=== PATIENT | male | born 1985 | race Asian ===

== ENCOUNTER 2023-01-03 15:06 | Inpatient (IN) | payer OTHER ==
[~2023-01-03] VITALS: Ht 152.4 cm; Wt 46.3 kg
--- NOTE | 2023-01-03 15:25 | NUR ---
SENT BY PCP FOR POSS. PEG TUBE PLACEMENT FOR BARIUM SWALLOW STUDY, RECOMMENDED BY PCP
--- NOTE | 2023-01-03 15:40 | NUR ---
MOVE SHEET SUBMITTED.
--- NOTE | 2023-01-03 15:45 | NUR ---
TECH AT BEDSIDE FOR EKG
--- NOTE | 2023-01-03 15:55 | NUR ---
COVID SWAB COLLECTED AND SENT TO LAB
--- NOTE | 2023-01-03 16:05 | NUR ---
established iv line 20 g right ac
[2023-01-03] MEDS ORDERED: LAMO25TA10 PO ×2 (16:10)
[2023-01-03] MEDS ORDERED: MAGN400O6 PO (16:10)
[2023-01-03] MEDS ORDERED: KETO120S5 TP (16:10)
[2023-01-03] MEDS ORDERED: BISA10SU11 RC (16:10)
[2023-01-03] MEDS ORDERED: OMEP20CA15 PO (16:10)
[2023-01-03] MEDS ORDERED: OXCA300T15 PO (16:10)
[2023-01-03] MEDS ORDERED: MULT-447 PO (16:10)
[2023-01-03] MEDS ORDERED: ACET-868 PO (16:10)
[2023-01-03] MEDS ORDERED: LEVE1000 PO (16:10)
[2023-01-03] MEDS ORDERED: TRIA15CR3 TP (16:10)
[2023-01-03] MEDS ORDERED: NA P133E RC (16:10)
[2023-01-03] MEDS ORDERED: DOCU-141 PO (16:10)
[2023-01-03] MEDS ORDERED: SENN8.8S19 PO (16:10)
[2023-01-03 16:12] LABS: BASOPHILS % (AUTO) 0.2 % (0.0-2.0); EOSINOPHILS % (AUTO) 0.7 % (0.0-6.0); HEMATOCRIT 41 % (39-51); HEMOGLOBIN 12.8 g/dL (13.5-17.5); LYMPHOCYTES # (AUTO) 2.4 K/uL (0.8-4.8); LYMPHOCYTES % (AUTO) 26.4 % (20.0-44.0); MEAN CORPUSCULAR HGB CONC 31 g/dl (31.0-36.0); MEAN CORPUSCULAR VOLUME 72 fL (80-96); MONOCYTES # (AUTO) 0.5 K/uL (0.1-1.30); MONOCYTES % (AUTO) 5.3 % (2.0-12.0); NEUTROPHILS # (AUTO) 6.2 K/uL (1.8-8.9); NEUTROPHILS % (AUTO) 67.4 % (43.0-81.0); PLATELET COUNT (AUTO) 469 K/uL (150-450); RED BLOOD CELL COUNT(AUTO) 5.79 MIL/uL (4.5-6.0); WHITE BLOOD COUNT (AUTO) 9.2 K/uL (4.3-11.0)
--- NOTE | 2023-01-03 16:37 | NUR ---
[facility] CALLED METALLURGIST PROCESS PAGED.
[2023-01-03 16:45] LABS: ALBUMIN 3.5 g/dL (3.4-5.0); BILIRUBIN,TOTAL 0.3 mg/dL (0.2-1.0); CALCIUM, SERUM 9.6 mg/dL (8.5-10.1); CREATININE 0.9 mg/dL (0.6-1.3); POTASSIUM 4.1 mmol/L (3.5-5.1); TOTAL PROTEIN, SERUM 8.9 g/dL (6.4-8.2)
--- NOTE | 2023-01-03 17:25 | NUR ---
DR NELSON ABLE TO SPEAK W/ DR RAMOS
[2023-01-03] MEDS: LEVETIRACETAM (250 MG) 250 MG TABLET PO SCH (17:30)
[2023-01-03] MEDS ORDERED: ACETAMINOPHEN 650 MG/SUPP.RECT RC PRN (17:30)
[2023-01-03] MEDS ORDERED: IV D5/0.45 NACL 1,000 ML IV PRN (17:30)
[2023-01-03] MEDS: OXCARBAZEPINE 150 MG TABLET PO SCH (17:30)
[2023-01-03] MEDS ORDERED: ONDANSETRON HCL/PF 4 MG/2 ML VIAL IVP PRN ×2 (17:30)
[2023-01-03] MEDS ORDERED: Z GUARD REMEDY 4 OZ OINT TP PRN ×2 (17:30)
--- NOTE | 2023-01-03 18:05 | NUR ---
room 304-1
--- NOTE | 2023-01-03 18:33 | NUR ---
ROOM 327-2
--- NOTE | 2023-01-03 18:33 | NUR ---
PT REPORT GIVEN TO CAROLA OROZCO
[2023-01-03 18:35] LABS: LYMPHOCYTES % (MANUAL) 29 % (16-48); MONOCYTES % (MANUAL) 6 % (0-11.0); NEUTROPHILS % (MANUAL) 65 (42-76)
--- NOTE | 2023-01-03 19:41 | NUR ---
PT TRANSFERRING TO [facility] VIA HOSPITAL PROTOCOL. VSS. ALL BELONGINGS WITH PT
[2023-01-03 20:00] VITALS: BP 141/115
--- NOTE | 2023-01-03 22:33 | NUR ---
MS RN ADMITTING NOTES: RECEIVED PATIENT AWAKE IN BED TRANSFER VIA GURNEY, PLACED COMFORTABLY IN BED, BED IN LOW POSITION CALL LIGHTS WITHIN REACH, PATIENT IS A/OX1, NO COMPLAIN OF PAIN AND DISCOMFORT AT THIS TIME, ON ROOM AIR SATURATING WELL, PATIENT ON NPO, IV LINE AT RFA#20 WITH ONGOING D5 1/2 NSS@75ML/HR INFUSING WELL, SKIN ASSESSMENT DONE AND DOCUMENTED, INVENTORY DONE, PATIENT PLACE IN BED COMFORTABLY, REMIND TO USE CALL LIGHTS WHEN NEEDED ASSISTANCE,
[2023-01-03] MEDS: IV D5/0.45 NACL 1,000 ML IV PRN (22:58)
--- NOTE | 2023-01-04 06:49 | NUR ---
MS RN CLOSING NOTES: PATIENT SLEEP IN BED COMFORTABLY, BE DIN LOW POSITION CALL LIGHTS WITHIN REACH, NO COMPLAIN OF PAIN AND DISCOMFORT AT THIS TIME,NO FACIAL GRIMACING WAS OBSERVED, ON ROOM AIR SATURATING WELL, NO SOB WAS OBSERVED, ON NPO, PATIENT IS A/OX1 NONE VERBAL, N WITH IV LINE OF D5 1/2 NSS@75ML/HR INFUSING WELL, PATIENT KEPT CLEAN AND DRY ALL NEEDS MET ENDORSE TO INCOMING SHIFT.
[2023-01-04 07:12] LABS: BASOPHILS % (AUTO) 0.2 % (0.0-2.0); EOSINOPHILS % (AUTO) 0.6 % (0.0-6.0); HEMATOCRIT 37 % (39-51); HEMOGLOBIN 11.4 g/dL (13.5-17.5); LYMPHOCYTES # (AUTO) 2.2 K/uL (0.8-4.8); LYMPHOCYTES % (AUTO) 27.3 % (20.0-44.0); MEAN CORPUSCULAR HGB CONC 31 g/dl (31.0-36.0); MEAN CORPUSCULAR VOLUME 72 fL (80-96); MONOCYTES # (AUTO) 0.5 K/uL (0.1-1.30); MONOCYTES % (AUTO) 6.8 % (2.0-12.0); NEUTROPHILS # (AUTO) 5.3 K/uL (1.8-8.9); NEUTROPHILS % (AUTO) 65.1 % (43.0-81.0); PLATELET COUNT (AUTO) 411 K/uL (150-450); RED BLOOD CELL COUNT(AUTO) 5.19 MIL/uL (4.5-6.0); WHITE BLOOD COUNT (AUTO) 8.1 K/uL (4.3-11.0)
[2023-01-04 07:25] LABS: CREATININE 0.8 mg/dL (0.6-1.3); MAGNESIUM 2.1 mg/dL (1.8-2.4); PHOSPHORUS 3.4 mg/dL (2.5-4.9); POTASSIUM 3.8 mmol/L (3.5-5.1)
--- NOTE | 2023-01-04 07:35 | NUR ---
ms rn received on bed,non verbal patient, not in any form of distress, respirations even and unlabored,no sob noted, lungs are clear,abdomen soft,positive bowel sounds,no s/s of pain at this time, came in w/ dysphagia, failure to thrive, npo at this time, will monitor patient.
[2023-01-04 08:00] VITALS: BP 160/97
[2023-01-04] MEDS: LamoTRIgine 25 MG TABLET PO SCH (08:35)
[2023-01-04] MEDS: OXCARBAZEPINE 150 MG TABLET PO SCH ×2 (09:00→16:55)
[2023-01-04] MEDS ORDERED: PANTOPRAZOLE 40 MG VIAL IV SCH (09:00)
[2023-01-04] MEDS: LEVETIRACETAM (250 MG) 250 MG TABLET PO SCH ×2 (09:00→16:55)
--- NOTE | 2023-01-04 09:00 | NUR ---
ms rn speech therapist came, cannot evaluate patient, will retry again in am, remained npo at this time.
[2023-01-04] MEDS: PANTOPRAZOLE 40 MG VIAL IV SCH (09:28)
--- NOTE | 2023-01-04 11:00 | NUR ---
ms rn called facility for vaccine updates, planning to insert pegtube by dr. santana will call family for consents.
[2023-01-04] MEDS: IV D5/0.45 NACL 1,000 ML IV PRN ×2 (11:18→23:29)
--- NOTE | 2023-01-04 11:40 | NUR ---
ms rn was seen by dr hernandez, waiting for orders.
--- NOTE | 2023-01-04 14:00 | NUR ---
ms rn up by PT, did 5feet, looks wear.all needs attended.
[2023-01-04 16:00] VITALS: BP 147/97
--- NOTE | 2023-01-04 19:20 | NUR ---
MS RN OPENING NOTE PATIENT IS SITTING IN THE BED WITH EYES OPENED. HE IS ALERT, AO X 1. HE IS ON RA, TOLERATED WELL. NO S/S OF DISTRESS OR SOB. PATIENT HAS IV ACCESS AT HIS R AC, #20G, RUNNING D5 1/2NS@ 75 ML/HR. IV SITE IS PATENT AND INTACT. PATIENT DOES NOT SHOWING ANY SIGNS OF HAVING PAIN AT THIS MOMENT. SAFETY MEASURES ARE IN PLACED: BED IN LOWEST AND LOCKED POSITION; SIDE RAILS UP X 2; BED ALARM IS SET; AND CALL LIGHT AND TABLE ARE WITHIN EASY REACH. WILL CONTINUE MONITOR THE PATIENT AND PROVIDE THE CARE PATIENT NEEDS.
[2023-01-04 20:00] VITALS: BP 150/98
--- NOTE | 2023-01-05 07:23 | NUR ---
MS RN CLOSING NOTE PATIENT IS SLEEPING IN BED, EASILY BEING AROUSED. HE IS ALERT, AO X 1. HE IS ON RA, TOLERATED WELL. NO S/S OF DISTRESS OR SOB. PATIENT HAS IV ACCESS AT HIS R AC, #20G, RUNNING D5 1/2NS@ 75 ML/HR. IV SITE IS PATENT AND INTACT. PATIENT DOES NOT SHOWING ANY SIGNS OF HAVING PAIN AT THIS MOMENT. SAFETY MEASURES ARE IN PLACED: BED IN LOWEST AND LOCKED POSITION; SIDE RAILS UP X 2; BED ALARM IS SET; AND CALL LIGHT AND TABLE ARE WITHIN EASY REACH. WILL ENDORSE NEXT SHIFT NURSE FOR CONTINUING PATIENT CARE.
--- NOTE | 2023-01-05 07:35 | NUR ---
ms rn received on bed, awake, nonverbal patient, came in w/ dysphagia/failure to thrive, iv at right upper arm w/ d5 1/2 ns at 75ml/hr, infusing well, repositioned for comfort,all needs attended.
[2023-01-05] MEDS: LamoTRIgine 25 MG TABLET PO SCH (09:00)
[2023-01-05] MEDS: LEVETIRACETAM (250 MG) 250 MG TABLET PO SCH ×2 (09:00→17:00)
[2023-01-05] MEDS: OXCARBAZEPINE 150 MG TABLET PO SCH ×2 (09:00→17:00)
[2023-01-05] MEDS: PANTOPRAZOLE 40 MG VIAL IV SCH (09:40)
--- NOTE | 2023-01-05 10:00 | NUR ---
ms rn still on bed, will follow up for the plan of g tube placement.
[2023-01-05] MEDS: IV D5/0.45 NACL 1,000 ML IV PRN (12:38)
--- NOTE | 2023-01-05 18:34 | NUR ---
ms rn patient on bed, no distress noted, was seen by dr. Quiñonez earlier, w/ orders made and carried out, still waiting for peg placement.all needs attended.
--- NOTE | 2023-01-05 19:00 | NUR ---
RN OPENING NOTES PT IS ASLEEP, A/O X 1, NON VERBAL. PT ON RA, TOLERATING WELL, BREATHING EVEN AND UNLABORED AT THIS TIME. PT RIGHT ANTECUBITAL #20G RUNNING D5 1/2 NS @ 75ML/HR, PATENT, INTACT AND FLUSHES WELL W/ NO S/S OF INFILTRATION ON SITE NOTED. PT IS NPO. SAFETY MEASURES IN PLACE. BED IN ITS LOWEST & LOCKED POSITION, SIDE RAILS UP X 3, BEDSIDE TABLE & CALL LIGHT IS EASY REACH. WILL CONTINUE TO MONITOR PT ACCORDINGLY.
[2023-01-05 20:00] VITALS: BP 149/105
[2023-01-05] MEDS ORDERED: hydrALAZINE HCL IV 20 MG VIAL IV PRN (20:00)
[2023-01-05] MEDS: hydrALAZINE HCL IV 20 MG VIAL IV PRN (20:40)
--- NOTE | 2023-01-05 20:50 | NUR ---
PT BP IS 149/105. CHARGE NURSE, TO WAS INFORMED AND NOTIFIED. DR. LON RBAGG WAS INFORMED AND NOTIFIED ABOUT THE PT CONDITION. DR. BRAGG ORDERED HYDRALAZINE 10 MG IVP Q6HR PRN FOR SBP >140. HYDRALAZINE ADMINISTERED ACCORDINGLY PER MD'S ORDER.
[2023-01-06] MEDS: hydrALAZINE HCL IV 20 MG VIAL IV PRN (04:54)
[2023-01-06] MEDS: IV D5/0.45 NACL 1,000 ML IV PRN (04:56)
--- NOTE | 2023-01-06 06:10 | NUR ---
RN CLOSING NOTES PT IS AWAKE, A/O X 1, NON VERBAL. PT ON RA, TOLERATING WELL, BREATHING EVEN AND UNLABORED AT THIS TIME. NO S/S OF RESPIRATORY DISTRESS. PT RIGHT ANTECUBITAL #20G RUNNING, PATENT, INTACT AND FLUSHES WELL W/ NO S/S OF INFILTRATION ON SITE NOTED. PT IS NPO. MEDICATION ADMINISTERED PER MD'S ORDER. SAFETY MEASURES IN PLACE. BED IN ITS LOWEST & LOCKED POSITION, SIDE RAILS UP X 2, BEDSIDE TABLE & CALL LIGHT IS EASY REACH. WILL CONTINUE TO MONITOR PT ACCORDINGLY.
[2023-01-06 06:22] LABS: BASOPHILS % (AUTO) 0.4 % (0.0-2.0); EOSINOPHILS % (AUTO) 3.1 % (0.0-6.0); HEMATOCRIT 41 % (39-51); HEMOGLOBIN 12.8 g/dL (13.5-17.5); LYMPHOCYTES # (AUTO) 1.6 K/uL (0.8-4.8); LYMPHOCYTES % (AUTO) 18.8 % (20.0-44.0); MEAN CORPUSCULAR HGB CONC 31 g/dl (31.0-36.0); MEAN CORPUSCULAR VOLUME 72 fL (80-96); MONOCYTES # (AUTO) 0.6 K/uL (0.1-1.30); MONOCYTES % (AUTO) 7.4 % (2.0-12.0); NEUTROPHILS # (AUTO) 5.9 K/uL (1.8-8.9); NEUTROPHILS % (AUTO) 70.3 % (43.0-81.0); PLATELET COUNT (AUTO) 397 K/uL (150-450); RED BLOOD CELL COUNT(AUTO) 5.74 MIL/uL (4.5-6.0); WHITE BLOOD COUNT (AUTO) 8.4 K/uL (4.3-11.0)
--- NOTE | 2023-01-06 07:09 | NUR ---
ms rn received on bed, awake,no distress noted, still patient waiting for peg placement, bilateral lower extremity contracted, denies pain , all needs attended.
[2023-01-06 07:18] LABS: ALBUMIN 3.1 g/dL (3.4-5.0); BILIRUBIN,TOTAL 0.6 mg/dL (0.2-1.0); CALCIUM, SERUM 9.3 mg/dL (8.5-10.1); CREATININE 0.7 mg/dL (0.6-1.3); PHOSPHORUS 3.6 mg/dL (2.5-4.9); POTASSIUM 3.8 mmol/L (3.5-5.1)
[2023-01-06] MEDS: LamoTRIgine 25 MG TABLET PO SCH (09:00)
[2023-01-06] MEDS: OXCARBAZEPINE 150 MG TABLET PO SCH ×2 (09:00→17:00)
[2023-01-06] MEDS: LEVETIRACETAM (250 MG) 250 MG TABLET PO SCH ×2 (09:00→17:00)
[2023-01-06] MEDS: PANTOPRAZOLE 40 MG VIAL IV SCH (09:36)
--- NOTE | 2023-01-06 14:30 | NUR ---
ms rn went down for peg placement,all needs attended.
--- NOTE | 2023-01-06 15:50 | NUR ---
ms rn came back from peg placement surgery, patient is awake, vitals stable, surgery site, w/ dressing w. blood strick, will monitor for bleeding, denies pain at this time,all needs attended
--- NOTE | 2023-01-06 17:00 | NUR ---
ms rn checked surgical site for bleeding, dressing slightly soaked w/ blood, reinforced dressing.
--- NOTE | 2023-01-06 18:15 | NUR ---
ms rn dressing heavily soaked, rechecked w/ charge nurse, w/ order to do cbc and stat kub,all needs attended,no distress noted. will notify dr. arrington.
[2023-01-06 19:54] LABS: BASOPHILS % (AUTO) 0.2 % (0.0-2.0); EOSINOPHILS % (AUTO) 0.8 % (0.0-6.0); HEMATOCRIT 44 % (39-51); HEMOGLOBIN 13.1 g/dL (13.5-17.5); LYMPHOCYTES # (AUTO) 1.3 K/uL (0.8-4.8); LYMPHOCYTES % (AUTO) 7.9 % (20.0-44.0); MEAN CORPUSCULAR HGB CONC 30 g/dl (31.0-36.0); MEAN CORPUSCULAR VOLUME 74 fL (80-96); MONOCYTES # (AUTO) 0.9 K/uL (0.1-1.30); MONOCYTES % (AUTO) 5.3 % (2.0-12.0); NEUTROPHILS # (AUTO) 14.4 K/uL (1.8-8.9); NEUTROPHILS % (AUTO) 85.8 % (43.0-81.0); PLATELET COUNT (AUTO) 376 K/uL (150-450); RED BLOOD CELL COUNT(AUTO) 5.89 MIL/uL (4.5-6.0); WHITE BLOOD COUNT (AUTO) 16.8 K/uL (4.3-11.0)
--- NOTE | 2023-01-06 19:58 | NUR ---
RN OPENING NOTES RECEIVED PT AWAKE ON BED, A/O X 1, NON VERBAL. PT ON RA, TOLERATING WELL, BREATHING EVEN AND UNLABORED AT THIS TIME. NO S/S OF RESPIRATORY DISTRESS. PT RIGHT ANTECUBITAL #20G RUNNING, PATENT, INTACT AND FLUSHES WELL W/ NO S/S OF INFILTRATION ON SITE NOTED. PT IS NPO. SAFETY MEASURES IN PLACED; BED IN LOWEST POSITION & LOCKED, SIDE RAILS UP X 2, BEDSIDE TABLE & CALL LIGHT IS EASY REACH.
[2023-01-06 20:00] VITALS: BP 147/99
--- NOTE | 2023-01-06 21:00 | NUR ---
RN NOTE ASSESSMENT DONE OF PEG TUBE SITE DRESSING INTACT NO BLEEDING NOTED AT THIS TIME.
[2023-01-06 22:19] LABS: BAND % (MANUAL) 2 % (0.0-5.0); EOSINOPHILS % (MANUAL) 1 % (0-4); LYMPHOCYTES % (MANUAL) 11 % (16-48); MONOCYTES % (MANUAL) 4 % (0-11.0); NEUTROPHILS % (MANUAL) 82 (42-76)
--- NOTE | 2023-01-06 23:51 | NUR ---
RN NOTE WHEN CHANGING PT NOTED PEG TUBE DRESSING SOILED WITH BLOOD UPON FURTHER INSPECTION NOTED BLOOD LEAKING FROM THE SIDE OF DRESSING. DRESSING CHANGED AND REINFORCED. ABDOMINAL BINDER PUT ON CHARGE NURSE AT BEDSIDE MADE AWARE. ROASTER SUPERVISOR MAHSA BURROUGHS AWARE Addendum: 01/07/23 at 0356 by JAZMYN GAUTAM RN STAT CBC ORDERED NOTED CARRIED OUT CALLED LAB TO VERIFY ORDER WAS RECEIVED.
[2023-01-07 00:26] LABS: HEMOGLOBIN 12.2 g/dL (13.5-17.5)
[2023-01-07 02:20] VITALS: BP 128/65
--- NOTE | 2023-01-07 02:20 | NUR ---
RN NOTES NOTED PTS PEG TUBE DRESSING HAS SOAKED THROUGH ONCE AGAIN. CHARGE NURSE ASSESSED PT WITH ME INFORMED CISCO CONSULTANT MAHSA. REDRESSED AND APPLIED NEW DRESSING AND BINDER. PT DOES NOT APPEAR IN ANY DISTRESS VITALS ASSESSED SBP 128/65 CONTINUOUS ON 2L VIA NASAL CANNULA TOLERATING WELL. SKIN IS WARM TO THE TOUCH AND NO PALOR NOTED. AFEBRILE AT THIS TIME. Addendum: 01/07/23 at 0543 by JAZMYN GAUTAM RN HR 90S
[2023-01-07 04:59] VITALS: BP 128/84
[2023-01-07 05:42] LABS: BASOPHILS % (AUTO) 0.2 % (0.0-2.0); EOSINOPHILS % (AUTO) 1.3 % (0.0-6.0); HEMATOCRIT 34 % (39-51); HEMOGLOBIN 10.7 g/dL (13.5-17.5); LYMPHOCYTES # (AUTO) 1.6 K/uL (0.8-4.8); LYMPHOCYTES % (AUTO) 12.9 % (20.0-44.0); MEAN CORPUSCULAR HGB CONC 31 g/dl (31.0-36.0); MEAN CORPUSCULAR VOLUME 71 fL (80-96); MONOCYTES # (AUTO) 0.6 K/uL (0.1-1.30); MONOCYTES % (AUTO) 5.2 % (2.0-12.0); NEUTROPHILS # (AUTO) 9.8 K/uL (1.8-8.9); NEUTROPHILS % (AUTO) 80.4 % (43.0-81.0); PLATELET COUNT (AUTO) 437 K/uL (150-450); RED BLOOD CELL COUNT(AUTO) 4.82 MIL/uL (4.5-6.0); WHITE BLOOD COUNT (AUTO) 12.2 K/uL (4.3-11.0)
[2023-01-07 05:59] LABS: D-DIMER 1.47 mg/L(FEU (0.17-0.50)
[2023-01-07 06:02] LABS: ALBUMIN 2.8 g/dL (3.4-5.0); BILIRUBIN,TOTAL 0.5 mg/dL (0.2-1.0); CREATININE 0.8 mg/dL (0.6-1.3); MAGNESIUM 1.7 mg/dL (1.8-2.4); PHOSPHORUS 3.5 mg/dL (2.5-4.9); POTASSIUM 3.7 mmol/L (3.5-5.1); TOTAL PROTEIN, SERUM 7.3 g/dL (6.4-8.2)
[2023-01-07] MEDS ORDERED: SILVER NITRATE APPLICATOR 1 EA BOX TP ONE ×2 (06:30→07:00)
--- NOTE | 2023-01-07 06:56 | NUR ---
RN CLOSING NOTES PATIENT AWAKE ON BED, A/O X 1, NON VERBAL. PT ON RA, TOLERATING WELL, BREATHING EVEN AND UNLABORED AT THIS TIME. NO S/S OF RESPIRATORY DISTRESS. PT RIGHT ANTECUBITAL #20G RUNNING, PATENT, INTACT AND FLUSHES WELL W/ NO S/S OF INFILTRATION ON SITE NOTED. PT IS NPO. ALL NEEDS ARE MET. PATIENT IS BLEEDING THROUGH PEG-TUBE SITE DRESSING REINFORCED THROUGH OUT THE NIGHT, GI DOCTOR MADE AWARE OF, DESK REPRESENTATIVE DOCTOR MADE AWARE OF, RECEIVED ORDER OF SILVER NITRATE AND CARRIED OUT. SAFETY MEASURES IN PLACED; BED IN LOWEST POSITION & LOCKED, SIDE RAILS UP X 2, BEDSIDE TABLE & CALL LIGHT IS EASY REACH.WILL ENDORSE TO NEXT SHIFT NURSE FOR CONTINUITY OF CARE. Addendum: 01/07/23 at 0728 by JAZMYN GAUTAM RN morning hgb noted to be 10.7 GI doctor and underwriting operations manager made aware.
[2023-01-07] MEDS ORDERED: CELLULOSE,OXIDIZED 1 PKT EACH MC ONE (07:00)
--- NOTE | 2023-01-07 07:30 | NUR ---
PT RECEIVED RESTING COMFORTABLY IN BED WITH EYES CLOSED. NO S/S OR C/O PAIN OR DISTRESS NOTED. SIDE RAILS UP X2, CALL LIGHT LEFT WITHIN REACH. WILL CONTINUE PLAN OF CARE.
--- NOTE | 2023-01-07 07:45 | NUR ---
DRESSING CHANGE DRESSING REMOVED TO ASSESS SITE. BIG CLOTS REMOVED. SITE FOUND TO HAVE MILD-MODERATE CONSISTENT BLEEDING. PATIENT CLEANED. WE REPOSITIONED THE OUTER PEG TUBING TO A FLATTER ORIENTATION TO ACHIEVE OPTIMAL PRESSURE TO SITE. PRESSURE DRESSINGS APPLIED AND REINFORCED WITH SURGICAL TAPE AND ABD PAD. DISPOSABLE NORIS CHANGED AND REPLACE WITH CLEAN ONE TO MONITOR BLEEDING. WILL CONTINUE TO MONITOR. THANK YOU TO DEVEN SRIVASTAVA FOR ASSISTING.
[2023-01-07 08:21] VITALS: BP 115/80
[2023-01-07] MEDS: LEVETIRACETAM (250 MG) 250 MG TABLET PO SCH ×2 (09:13→16:10)
[2023-01-07] MEDS: PANTOPRAZOLE 40 MG VIAL IV SCH (09:13)
[2023-01-07] MEDS: OXCARBAZEPINE 150 MG TABLET PO SCH ×2 (09:13→16:09)
[2023-01-07] MEDS: Magnesium 1GM/D5W 100ML PREMIX 100 ML IV SCH ×2 (09:13→11:25)
[2023-01-07] MEDS: LamoTRIgine 25 MG TABLET PO SCH (09:14)
--- NOTE | 2023-01-07 09:15 | NUR ---
AT [facility] DR SERRA Addendum: 01/07/23 at 1852 by NAS SAN RN NO FURTHER BLEEDING NOTED AFTER APPLICATION OF SILVER NITRATE. PRESSURE DRESSING APPLIED. WILL CONTINUE TO MONITOR.
--- NOTE | 2023-01-07 10:30 | NUR ---
NO BLEEDING NOTED.
[2023-01-07 12:00] VITALS: BP 103/70
[2023-01-07] MEDS ORDERED: JEVITY 1.2 CAL 1,000 ML BOTTLE NG PRN ×2 (14:00)
--- NOTE | 2023-01-07 14:00 | NUR ---
DRESSING CHECKED SHOWN TO HAVE A MINIMAL AMOUNT OF SEROUS DRAINAGE. WNL. NO SIGNS OF BLEEDING.
[2023-01-07] MEDS: IV D5/0.45 NACL 1,000 ML IV PRN (14:42)
[2023-01-07 16:23] VITALS: BP 102/79
--- NOTE | 2023-01-07 17:00 | NUR ---
NO BLEEDING NOTED. ABD BINDER REMOVED
--- NOTE | 2023-01-07 18:50 | NUR ---
CHANGE OF SHIFT REPORT PT RESTING COMFORTABLY IN BED. NO S/S OR C/O PAIN OR DISTRESS NOTED. SIDE RAILS UP X2, CALL LIGHT LEFT WITHIN REACH. PT KEPT CLEAN, DRY, AND COMFORTABLE. NO SIGNIFICANT CHANGES SINCE PREVIOUS SHIFT. WILL GIVE REPORT TO RHYS SRIVASTAVA.
--- NOTE | 2023-01-07 19:30 | NUR ---
PARK AIDE NOTES RECEIVED PATIENT IN BED WITH CLOSED EYES. RESPONSIVE UPON TACTILE STIMULI. NON VERBAL. NO PAIN NOTED. NO SOB NOTED. NO FACIAL GRIMACING NOTED. GTUBE IN PLACE. NO BLEEDING NOTED AT THE GTUBE SITE AT THIS TIME. ON G-TUBE FEEDING OF JEVITY AT 30 ML/HR. PREVIOUS SHIFT NURSE ENDORSED FOR FEEDING RATE AND KIND CLARIFICATION WITH MERCHANDISE DIRECTOR TOMORROW MORNING. IV ACCESS ON THE REJI G 22 INTACT RUNNING D5 1/2 NS AT 75 ML /HR. ALL SAFETY MEASURES IN PLACE. HEAD OF THE BED ELEVATED FOR ASPIRATION PRECAUTION. BED LOCKED IN THE LOWEST POSITION. SIDE RAILS UP TIMES 2. CALL LIGHT CLOSE TO THE PATIENT. WILL CONTINUE TO MONITOR CLOSELY FOR BLEEDING AND KELECHI DURING SHIFT.
[2023-01-07 20:00] VITALS: BP 126/86
[2023-01-08] VITALS (11 sets, daily range): BP systolic 100–135; BP diastolic 68–90
[2023-01-08] MEDS: IV D5/0.45 NACL 1,000 ML IV PRN ×2 (05:32→22:04)
[2023-01-08 07:05] LABS: BASOPHILS % (AUTO) 0.2 % (0.0-2.0); HEMATOCRIT 24 % (39-51); HEMOGLOBIN 7.6 g/dL (13.5-17.5); LYMPHOCYTES # (AUTO) 2.5 K/uL (0.8-4.8); MEAN CORPUSCULAR HGB CONC 32 g/dl (31.0-36.0); MEAN CORPUSCULAR VOLUME 71 fL (80-96); MONOCYTES # (AUTO) 0.9 K/uL (0.1-1.30); MONOCYTES % (AUTO) 6.6 % (2.0-12.0); NEUTROPHILS # (AUTO) 10.1 K/uL (1.8-8.9); NEUTROPHILS % (AUTO) 72.2 % (43.0-81.0); PLATELET COUNT (AUTO) 340 K/uL (150-450); RED BLOOD CELL COUNT(AUTO) 3.37 MIL/uL (4.5-6.0)
[2023-01-08 07:21] LABS: CALCIUM, SERUM 8.7 mg/dL (8.5-10.1); CREATININE 1.3 mg/dL (0.6-1.3); POTASSIUM 3.6 mmol/L (3.5-5.1)
--- NOTE | 2023-01-08 07:30 | NUR ---
OPTIMIZATION ENGINEER CLOSING NOTES PATIENT IN BED AWAKE. NO PAIN NOTED. NO SOB NOTED. NO FACIAL GRIMACING NOTED. GTUBE IN PLACE. NO BLEEDING NOTED AT THE GTUBE SITE AT THIS TIME. ON TELE MONITOR READIND ST 121.ON G-TUBE FEEDING OF JEVITY AT 30 ML/HR. PREVIOUS SHIFT NURSE ENDORSED FOR FEEDING RATE AND KIND CLARIFICATION WITH GROUP ACTIVITIES AIDE. IV ACCESS ON THE REJI G 22 INTACT RUNNING D5 1/2 NS AT 75 ML /HR. ALL SAFETY MEASURES IN PLACE. HEAD OF THE BED ELEVATED FOR ASPIRATION PRECAUTION. BED LOCKED IN THE LOWEST POSITION. SIDE RAILS UP TIMES 2. CALL LIGHT CLOSE TO THE PATIENT. WILL ENDORSE FOR KELECHI.
--- NOTE | 2023-01-08 07:50 | NUR ---
PASTRY COOK APPRENTICE OPENING NOTES PATIENT AWAKE IN BED, A/OX1 NO PAIN NOTED. NO SOB NOTED. NO FACIAL GRIMACING NOTED. GTUBE IN PLACE. NO BLEEDING NOTED AT THE GTUBE SITE AT THIS TIME. ON TELE MONITOR READIND ST 125. ON G-TUBE FEEDING OF JEVITY AT 30 ML/HR. IV ACCESS ON THE REJI G 22 INTACT RUNNING D5 1/2 NS AT 75 ML /HR. ALL SAFETY MEASURES IN PLACE. HEAD OF THE BED ELEVATED FOR ASPIRATION PRECAUTION. BED LOCKED IN THE LOWEST POSITION. SIDE RAILS UP TIMES 2. CALL LIGHT CLOSE TO THE PATIENT. WILL CONTINUE TO MONITOR.
[2023-01-08] MEDS: OXCARBAZEPINE 150 MG TABLET PO SCH ×2 (09:51→17:03)
[2023-01-08] MEDS: PANTOPRAZOLE 40 MG/PACK PACK NG SCH (09:51)
[2023-01-08] MEDS: LEVETIRACETAM (250 MG) 250 MG TABLET PO SCH ×2 (09:51→17:03)
[2023-01-08] MEDS: LamoTRIgine 25 MG TABLET PO SCH (09:56)
[2023-01-08] MEDS ORDERED: JEVITY 1.2 CAL 1,000 ML BOTTLE NG PRN (11:42)
[2023-01-08 14:31] LABS: BASOPHILS % (AUTO) 0.2 % (0.0-2.0); EOSINOPHILS % (AUTO) 3.1 % (0.0-6.0); HEMATOCRIT 23 % (39-51); LYMPHOCYTES # (AUTO) 2.3 K/uL (0.8-4.8); LYMPHOCYTES % (AUTO) 16.3 % (20.0-44.0); MEAN CORPUSCULAR HGB CONC 31 g/dl (31.0-36.0); MEAN CORPUSCULAR VOLUME 72 fL (80-96); MONOCYTES # (AUTO) 0.9 K/uL (0.1-1.30); MONOCYTES % (AUTO) 6.4 % (2.0-12.0); NEUTROPHILS # (AUTO) 10.4 K/uL (1.8-8.9); PLATELET COUNT (AUTO) 325 K/uL (150-450); RED BLOOD CELL COUNT(AUTO) 3.14 MIL/uL (4.5-6.0); WHITE BLOOD COUNT (AUTO) 14.1 K/uL (4.3-11.0)
[2023-01-08 14:56] LABS: HEMOGLOBIN 6.8 g/dL (13.5-17.5)
--- NOTE | 2023-01-08 15:00 | NUR ---
RN NOTES NOTIFIED DR. RAMOS REGARDING HEMOGLOBIN RESULT OF 6.8, WITH ORDER TO TRANSFUSE 1 PACK RBC. WILL CONTINUE TO MONITOR.
--- NOTE | 2023-01-08 19:30 | NUR ---
OPEN HEARTH LABORER CLOSING NOTES PATIENT SLEEPING IN BED, EASILY AROUSED. NO SIGNS OF DISTRESS NOTED. GTUBE IN PLACE, DRY AND INTACT. NO BLEEDING NOTED AT THE GTUBE SITE AT THIS TIME. ON G-TUBE FEEDING OF JEVITY AT 50 ML/HR. IV ACCESS ON THE REJI G 22 INTACT. BLOOD TRANSFUSION STARTED AT 1915, MONITOR EVERY [id number]. MONITOR FOR ANY SIDE EFFECTS. NO COMPLICATIONS NOTED SO FAR. ALL SAFETY MEASURES IN PLACE. HEAD OF THE BED ELEVATED FOR ASPIRATION PRECAUTION. BED LOCKED IN THE LOWEST POSITION. SIDE RAILS UP TIMES 2. CALL LIGHT CLOSE TO THE PATIENT. WILL ENDORSE FOR KELECHI.
--- NOTE | 2023-01-08 20:22 | NUR ---
GLASSWARE VERIFIER OPENING NOTE PATIENT SLEEPING IN BED, EASILY AROUSED, PT NON-VERBAL. PATIENT STABLE ON 2 LPM OF O2 VIA NASAL CANNULA, NO S/S OF DISTRESS OR SOB NOTED, BREATHING EVEN AND UNLABORED. PATIENT ON EXTERNAL CAR LUBRICATOR READING SINUS RHYTHM, HR: 99. PATIENT UNDERGOING BLOOD TRANSFUSION, TOLERATING WELL, VITAL SIGNS WNL. IV ACCESS ON REJI #22G INTACT AND INFUSING BLOOD. GTF INFUSING JEVITY 1.2 @ 50 ML/HR. SAFETY MEASURES IN PLACE: CALL LIGHT WITHIN REACH, SIDE RAILS UP X 3, BED LOCKED IN LOWEST POSITION, BED ALARM ON. WILL CONTINUE TO MONITOR PATIENT
--- NOTE | 2023-01-08 22:02 | NUR ---
QUALITY REVIEW SPECIALIST NOTE BLOOD TRANSFUSION FINISHED, PATIENT TOLERATED WELL, NO ADVERSE REACTIONS NOTED, VITAL SIGNS WNL. WILL CONTINUE TO MONITOR PATIENT
[2023-01-09] VITALS: BP 124/69
[2023-01-09 04:00] VITALS: BP 127/80
[2023-01-09 05:07] LABS: BASOPHILS % (MANUAL) 0 % (0.0-2.0); EOSINOPHILS % (MANUAL) 4 % (0-4); LYMPHOCYTES % (MANUAL) 18 % (16-48); MONOCYTES % (MANUAL) 4 % (0-11.0); NEUTROPHILS % (MANUAL) 74 (42-76)
[2023-01-09 06:55] LABS: BASOPHILS % (AUTO) 0.2 % (0.0-2.0); HEMATOCRIT 23 % (39-51); HEMOGLOBIN 7.5 g/dL (13.5-17.5); LYMPHOCYTES # (AUTO) 1.3 K/uL (0.8-4.8); MEAN CORPUSCULAR HGB CONC 32 g/dl (31.0-36.0); MEAN CORPUSCULAR VOLUME 71 fL (80-96); MONOCYTES # (AUTO) 0.9 K/uL (0.1-1.30); MONOCYTES % (AUTO) 7.3 % (2.0-12.0); NEUTROPHILS # (AUTO) 9.3 K/uL (1.8-8.9); NEUTROPHILS % (AUTO) 78.5 % (43.0-81.0); PLATELET COUNT (AUTO) 314 K/uL (150-450); WHITE BLOOD COUNT (AUTO) 11.8 K/uL (4.3-11.0)
--- NOTE | 2023-01-09 07:03 | NUR ---
PARKING TECHNICIAN CLOSING NOTE PATIENT AWAKE IN BED, PT NON-VERBAL, UNABLE TO MAKE THINGS . PATIENT STABLE ON 2 LPM OF O2 VIA NASAL CANNULA, NO S/S OF DISTRESS OR SOB NOTED, BREATHING EVEN AND UNLABORED. PATIENT ON EXTERNAL CONTRACT CLERK READING SINUS RHYTHM, HR: 88. PATIENT S/P 1 UNIT PRBC LAST NIGHT, TOLERATED WELL, NO ADVERSE EFFECTS. PATIENT ON GTF JEVITY 1.2 @ 50 ML/HR, NO BLEEDING NOTED AT GTUBE SITE THIS SHIFT. IV ACCESS ON REJI #22G INTACT AND INFUSING D5 1/2 NS @ 75 ML/HR. MEDICATIONS GIVEN ORDERED, PT NEEDS MET THROUGHOUT SHIFT. SAFETY MEASURES IN PLACE: CALL LIGHT WITHIN REACH, SIDE RAILS UP X 3, BED LOCKED IN LOWEST POSITION, HOB ELEVATED, BED ALARM ON. WILL ENDORSE TO DAYSHIFT RN FOR CONTINUITY OF CARE
[2023-01-09 07:18] LABS: CALCIUM, SERUM 8.6 mg/dL (8.5-10.1); CREATININE 0.8 mg/dL (0.6-1.3); POTASSIUM 3.9 mmol/L (3.5-5.1)
--- NOTE | 2023-01-09 07:45 | NUR ---
BILLET DRILLER OPENING NOTE PATIENT AWAKE IN BED, PT NON-VERBAL, PATIENT STABLE ON 2 LPM OF O2 VIA NASAL CANNULA, NO S/S OF DISTRESS OR SOB NOTED, BREATHING EVEN AND UNLABORED. PATIENT ON EXTERNAL ASSOCIATE PROFESSOR OF FORESTRY READING SINUS RHYTHM, HR: 80. PATIENT S/P 1 UNIT PRBC LAST NIGHT, NO COMPLICATIONS NOTED. PATIENT ON GTF JEVITY 1.2 @ 50 ML/HR, NO BLEEDING NOTED AT GTUBE SITE. IV ACCESS ON REJI #22G INTACT AND INFUSING D5 1/2 NS @ 75 ML/HR. SAFETY MEASURES IN PLACE: CALL LIGHT WITHIN REACH, SIDE RAILS UP X 3, BED LOCKED IN LOWEST POSITION, HOB ELEVATED, BED ALARM ON. WILL CONTINUE TO MONITOR.
[2023-01-09 08:00] VITALS: BP 143/93
[2023-01-09] MEDS: PANTOPRAZOLE 40 MG/PACK PACK NG SCH (09:03)
[2023-01-09] MEDS: LamoTRIgine 25 MG TABLET PO SCH (09:04)
[2023-01-09] MEDS: OXCARBAZEPINE 150 MG TABLET PO SCH (09:04)
[2023-01-09] MEDS: LEVETIRACETAM (250 MG) 250 MG TABLET PO SCH (09:04)
[2023-01-09 12:01] VITALS: BP 124/77
--- NOTE | 2023-01-09 13:14 | NUR ---
DISCHARGED NOTE PATIENT DISCHARGED TO [facility] IN STABLE CONDITION. AWAKE, NON-VERBAL. ON RA, TOLERATING WELL WITH SPO2 OF 98%. NO SOB/DISTRESS NOTED. VITAL SIGNS TAKEN, STABLE AND RECORDED. FERRLICIT HAS BEEN GIVEN BEFORE DISCHARGED ORDERED. NEW MEDICATIONS PRESCRIBED BY YOLIS DAY, ALL BELONGINGS ACCOUNTED TO THE PATIENT. DISCHARGED INSTRUCTIONS RELAYED TO KANDICE AT [facility]. IV ACCESS REMOVED WITH NO ACTIVE BLEEDING NOTED. PATIENT LEFT THE UNIT VIA GURNEY ACCOMPANIED BY EMS. DISCHARGED.
[2023-01-09] MEDS ORDERED: SOD FERRIC GLUC 125 MG in IV NS 0.9% 100 ML IV SCH (14:00)
== END 2023-01-09 13:15 | DRG 641 ==
LOC: ER 15:08 → TELE 19:32 → MED 19:55 → TELE 01-07 06:30
PROC: 0DH63UZ Insertion of Feeding Device into Stomach, Percutaneous Approach (ICD-10-PCS; principal; 2023-01-06)
PROC: 30233N1 Transfusion of Nonautologous Red Blood Cells into Peripheral Vein, Percutaneous Approach (ICD-10-PCS; 2023-01-08)
DX: R62.7 Adult failure to thrive (principal); Z68.1 Body mass index [BMI] 19.9 or less, adult; J96.10 Chronic respiratory failure, unspecified whether with hypoxia or hypercapnia; G93.1 Anoxic brain damage, not elsewhere classified; E44.0 Moderate protein-calorie malnutrition; E87.1 Hypo-osmolality and hyponatremia; G93.49 Other encephalopathy; G40.909 Epilepsy, unspecified, not intractable, without status epilepticus; R13.10 Dysphagia, unspecified; K29.70 Gastritis, unspecified, without bleeding; Z20.822 Contact with and (suspected) exposure to COVID-19; F25.9 Schizoaffective disorder, unspecified; F32.9 Major depressive disorder, single episode, unspecified; Z86.73 Personal history of transient ischemic attack (TIA), and cerebral infarction without residual deficits; Z74.01 Bed confinement status; M62.50 Muscle wasting and atrophy, not elsewhere classified, unspecified site; Z79.899 Other long term (current) drug therapy; M62.40 Contracture of muscle, unspecified site; Z91.51 Personal history of suicidal behavior; D64.9 Anemia, unspecified; E88.09 Other disorders of plasma-protein metabolism, not elsewhere classified; S30.1XXA Contusion of abdominal wall, initial encounter; X58.XXXA Exposure to other specified factors, initial encounter; Y92.239 Unspecified place in hospital as the place of occurrence of the external cause
CPT/HCPCS: 36415; 43246; 71045-TC; 74018; 80048-TC; 80053-TC; 82962-TC; 83735-TC; 84100-TC; 85025-TC; 85027-TC; 85378-TC; 85610-TC; 85730-TC; 86850-TC; 87081-TC; 92526; 92611-TC; A4223; A6253; A6403; C9113; C9803; G0378; J0330; J0360; J2704; J2916; J3475; J3490; J7030; J7050; P9016